=== PATIENT | male | born 1940 | race Caucasian/White ===

== ENCOUNTER 2020-05-03 11:47 | Emergency (ER) | payer MEDICARE, OTHER ==
[~2020-05-03 11:47] MED LIST: ASPIRIN EC81 MG PO; ATIVAN0.5 MG PO; BENTYL10 MG PO; CERTAGEN1 EACH PO; CIPRO250 MG PO; CIPRO500 MG PO; EXCEDRIN EXTRA1 EACH PO; INDOCIN25 MG PO; LIBRAX CAPSULE1 EACH PO; NORCO 5-325 TA1 EACH PO
[2020-05-03] MEDS ORDERED: BENTYL10 MG PO (14:18)
== END 2020-05-03 14:35 | disposition home or self-care (01) ==
LOC: FER 11:47
DX: R10.32 Left lower quadrant pain (principal); Z88.0 Allergy status to penicillin; Z88.1 Allergy status to other antibiotic agents
CPT/HCPCS: 74022

== ENCOUNTER 2020-05-22 08:28 | Emergency (ER) | payer MEDICARE, OTHER | END 2020-05-22 10:03 | disposition home or self-care (01) | LOC: FER 08:28 | DX: S86.112A Strain of other muscle(s) and tendon(s) of posterior muscle group at lower leg level, left leg, initial encounter (principal); M79.652 Pain in left thigh; I10 Essential (primary) hypertension; X58.XXXA Exposure to other specified factors, initial encounter | CPT/HCPCS: 99283 ==

== ENCOUNTER 2020-11-01 11:38 | Emergency (ER) | payer MEDICARE, OTHER ==
[2020-11-01 13:06] LABS: BASOPHIL 0.6 % (0-2); HCT 41.1 % (42.0-52.0); HGB 13.7 g/dl (13.2-18.0); LYMPHOCYTE 15.9 % (15-48); MCH 29.7 pg (25.0-31.0); MCHC 33.3 g/dL (32.0-36.0); MCV 89.2 fL (78.0-100.0); MONOCYTE 9.5 % (0-12); MPV 9.1 fL (6.0-9.5); NEUTROPHIL 71.5 % (41-80); NRBC 0; PLT 235 K/uL (150-400); RBC 4.61 M/uL (4.70-6.00); RDW 13.2 % (11.5-14.0); WBC 8.6 K/uL (4.0-10.5)
[2020-11-01 13:25] LABS: ALBUMIN 3.9 g/dL (3.4-5.0); BILIRUBIN - TOTAL 0.5 mg/dL (0.2-1.0); BUN/CREAT RATIO (CALC) 15.2 RATIO; CREATININE 1.12 mg/dL (0.67-1.17); GLOBULIN (CALCULATION) 3.6 g/dL; POTASSIUM 4.7 mmol/L (3.5-5.1); TOTAL PROTEIN 7.5 g/dL (6.4-8.2)
== END 2020-11-01 14:40 | disposition home or self-care (01) ==
LOC: FER 11:38
PROVIDERS: Emergency Medicine
DX: R10.9 Unspecified abdominal pain (principal); K59.00 Constipation, unspecified; I10 Essential (primary) hypertension; Z88.0 Allergy status to penicillin; Z88.1 Allergy status to other antibiotic agents
CPT/HCPCS: 36415; 74022; 80053; 85025

== ENCOUNTER 2021-03-04 10:09 | Emergency (ER) | payer MEDICARE, OTHER | END 2021-03-04 10:50 | disposition left against medical advice (07) | LOC: FER 10:09 | DX: R10.9 Unspecified abdominal pain (principal); Z53.8 Procedure and treatment not carried out for other reasons ==

== ENCOUNTER 2021-03-04 13:03 | Emergency (ER) | payer MEDICARE, OTHER ==
[2021-03-04 15:09] LABS: BASOPHIL 0.7 % (0-2); EOSINOPHIL 0.8 % (0-7); HCT 51.8 % (42.0-52.0); HGB 16.9 g/dl (13.2-18.0); LYMPHOCYTE 20.8 % (15-48); MCH 32.6 pg (25.0-31.0); MCHC 32.6 g/dL (32.0-36.0); MCV 99.8 fL (78.0-100.0); MONOCYTE 11.3 % (0-12); NEUTROPHIL 65.8 % (41-80); NRBC 0; PLT 214 K/uL (150-400); RBC 5.19 M/uL (4.70-6.00); RDW 14.6 % (11.5-14.0)
[2021-03-04 15:32] LABS: ALBUMIN 3.2 g/dL (3.4-5.0); BILIRUBIN - TOTAL 0.7 mg/dL (0.2-1.0); BUN/CREAT RATIO (CALC) 18.9 RATIO; CREATININE 1.22 mg/dL (0.67-1.17); POTASSIUM 4.1 mmol/L (3.5-5.1); TOTAL PROTEIN 7.2 g/dL (6.4-8.2)
== END 2021-03-04 17:50 | disposition home or self-care (01) ==
LOC: FER 13:03
PROVIDERS: Nurse Practitioner Family
DX: R10.84 Generalized abdominal pain (principal); R10.32 Left lower quadrant pain; M54.50 Low back pain, unspecified; Z88.1 Allergy status to other antibiotic agents; Z91.041 Radiographic dye allergy status; Z88.0 Allergy status to penicillin; Z88.2 Allergy status to sulfonamides
CPT/HCPCS: 36415; 80053; 85025